=== PATIENT | female | born 1965 | race Caucasian/White ===

== ENCOUNTER 2023-10-03 19:16 | Inpatient (IN) | payer MEDICAID, OTHER ==
[~2023-10-03] VITALS: Ht 160 cm; Wt 115.2 kg
[2023-10-03 19:20] VITALS: BP_SYST 119; PULSE 108; RESP 20; RESP 28; TEMP 97.6; O2SAT 98
[2023-10-03 21:21] LABS: BASOPHILS # (AUTO) 0.1 K/uL (0.0-0.2); BASOPHILS % (AUTO) 0.7 % (0.0-2.0); EOSINOPHILS # (AUTO) 0.1 K/uL (0.0-0.4); EOSINOPHILS % (AUTO) 1.3 % (0.0-4.0); HEMATOCRIT 40.9 % (36-48); HEMOGLOBIN 13.8 g/dL (12.0-16.0); LYMPHOCYTES # (AUTO) 2.8 K/uL (1.0-5.5); LYMPHOCYTES % (AUTO) 31.6 % (20.5-51.5); MEAN CORPUSCULAR HEMOGLOBIN 29 pg (27-31); MEAN CORPUSCULAR HGB CONC 34 % (32-36); MEAN CORPUSCULAR VOLUME 85 fL (79.0-98.0); MONOCYTES # (AUTO) 0.9 K/uL (0.0-1.0); MONOCYTES % (AUTO) 10.6 % (1.7-9.3); NEUTROPHILS # (AUTO) 4.9 K/uL (1.8-7.7); NEUTROPHILS % (AUTO) 55.8 % (40.0-70.0); PLATELET COUNT (AUTO) 276 K/uL (130-430); RED BLOOD CELL COUNT(AUTO) 4.79 MIL/uL (4.2-6.2); RED CELL DISTRIBUTION WIDTH 16.8 % (9.0-15.0); WHITE BLOOD COUNT (AUTO) 8.8 K/uL (4.8-10.8)
[2023-10-03 22:01] LABS: ANION GAP 12 (5-15); CARBON DIOXIDE 28 mmol/L (23-29); CHLORIDE 100 mmol/L (98-107); CREATININE 1.15 mg/dL (0.55-1.30); GFR AFRICAN AMERICAN 63 mL/min (>90); GLUCOSE 124 mg/dL (74-106); POTASSIUM 3.3 mmol/L (3.5-5.1); SODIUM SERUM 140 mmol/L (136-145); UREA NITROGEN, BLOOD 12 mg/dL (8-21)
[2023-10-03 22:09] LABS: ALANINE AMINOTRANSFERASE 16 U/L (12-78); ALBUMIN 3.6 g/dL (3.4-4.8); ASPARTATE AMINOTRANSFERASE 10 U/L (10-37); TOTAL BILIRUBIN 0.3 mg/dL (0.0-1.0); TOTAL PROTEIN, SERUM 7.4 g/dL (6.4-8.3)
[2023-10-03 22:15] LABS: GFR NON AFRICAN-AMERICAN 52 mL/min (>90)
[2023-10-03 23:19] LABS: BILIRUBIN,URINE NEGATIVE (NEGATIVE); BLOOD, URINE NEGATIVE (NEGATIVE); COLOR,URINE YELLOW (YELLOW); GLUCOSE,URINE 3+ (NEGATIVE); KETONES,URINE TRACE (NEGATIVE); LEUKOCYTE ESTERASE ,URINE TRACE (NEGATIVE); NITRITE, URINE NEGATIVE (NEGATIVE); PROTEIN URINE NEGATIVE (NEGATIVE); UROBILINOGEN,URINE 0.2 (0.2-1.0)
[2023-10-03] MEDS ORDERED: methylPREDNISolone SOD SUCC/PF 62.5 MG/ML VIAL IVP ONE (23:30)
[2023-10-03] MEDS ORDERED: NACL 0.9% 1,000 ML IV ONE (23:30)
[2023-10-03] MEDS ORDERED: IPRATROPIUM/ALBUTEROL SULFATE 3 ML AMPUL.NEB (DUONEB) INH ONE (23:30)
[2023-10-03] MEDS ORDERED: MAGNESIUM SULFATE 50 ML IV ONE (23:30)
[2023-10-03 23:57] LABS: BLOOD GAS PCO2 27.2 mmHg (35.0-45.0); BLOOD GAS PH 7.503 (7.350-7.450)
[2023-10-03 23:58] LABS: ABG O2 SAT% ESTIMATE 97.6 % (94.0-100.0); ALLEN'S TEST YES (P); BLOOD GAS BASE EXCESS -0.4 mmol/L (-3.0-3.0); BLOOD GAS HCO3 21.3 mmol/L (21.0-27.0)
[2023-10-04] VITALS (9 sets, daily range): BP systolic 113–120; PULSE 101–118; RESP 18–22; TEMP 96.1–97.9; O2SAT 95–100
[2023-10-04 00:10] LABS: CLARITY/URINE SLIGHTLY CLOUDY (CLEAR)
[2023-10-04 00:12] LABS: BACTERIA,URINE FEW /HPF (None Seen); RBC,URINE 0-3 /HPF (0-3); WBC,URINE 20-50 /HPF (0-3)
[2023-10-04] MEDS ORDERED: PARO40TA80 PO (00:43)
[2023-10-04] MEDS ORDERED: HCT25 PO (00:43)
[2023-10-04] MEDS ORDERED: GABA-534 PO (00:43)
[2023-10-04] MEDS ORDERED: LISI20TA30 PO (00:43)
[2023-10-04] MEDS ORDERED: DAPA10TA PO (00:43)
[2023-10-04] MEDS ORDERED: OMEP20CA15 PO (00:43)
[2023-10-04] MEDS ORDERED: OMEG10006 PO (00:43)
[2023-10-04] MEDS ORDERED: DIVA-74 PO (00:43)
[2023-10-04] MEDS ORDERED: MELO-89 PO (00:43)
[2023-10-04] MEDS ORDERED: ASPI-1393 PO (00:43)
[2023-10-04] MEDS ORDERED: ASCO500T20 PO (00:43)
[2023-10-04] MEDS ORDERED: HYDR-3927 PO (00:43)
[2023-10-04] MEDS ORDERED: ALOG25TA PO (00:43)
[2023-10-04] MEDS ORDERED: CHOL500013 PO (00:43)
[2023-10-04] MEDS ORDERED: SIMV-43 PO (00:43)
[2023-10-04] MEDS ORDERED: TRAZ-251 PO (00:43)
[2023-10-04] MEDS ORDERED: VITA400T9 PO (00:43)
[2023-10-04] MEDS ORDERED: ZINC100T2 PO (00:43)
[2023-10-04] MEDS: methylPREDNISolone SOD SUCC/PF 62.5 MG/ML VIAL IVP SCH ×3 (06:40→17:02)
[2023-10-04] MEDS: cefTRIAXone 1 GM IVPB PREMIX 50 ML IV SCH (11:50)
[2023-10-04] MEDS: AZITHROMYCIN 500 MG in NS 250 ML IV SCH (11:51)
[2023-10-04] MEDS ORDERED: ALBUTEROL SULFATE 0.083% 2.5 MG/3 ML VIAL.NEB INH STA (12:20)
[2023-10-04] MEDS ORDERED: HYDROcodone/ACETAMIN 10-325 MG TAB PO PRN (12:30)
[2023-10-04] MEDS ORDERED: NALOXONE HCL 0.4 MG/ML AMP (NARCAN) IVP PRN (12:30)
[2023-10-04] MEDS ORDERED: ALBUTEROL SULFATE 0.083% 2.5 MG/3 ML VIAL.NEB INH ONE ×2 (12:50→16:00)
[2023-10-04] MEDS ORDERED: INSULIN REGULAR, HUMAN 10 UNITS/0.1 ML, 3 ML VIAL SUBCUT ONE (13:30)
[2023-10-04] MEDS ORDERED: PARoxetine HCL 20 MG TABLET PO ONE (13:30)
[2023-10-04] MEDS: INSULIN REGULAR, HUMAN 100 UNITS/ML, 3 ML VIAL (humuLIN R) SUBCUT PRN ×3 (13:34→21:43)
[2023-10-04] MEDS ORDERED: INSULIN REGULAR, HUMAN 10 UNITS/0.1 ML, 3 ML VIAL SUBCUT SCH (17:00)
[2023-10-04] MEDS: ALBUTEROL SULFATE 0.083% 2.5 MG/3 ML VIAL.NEB INH SCH ×2 (19:47→22:44)
[2023-10-04] MEDS ORDERED: GABAPENTIN 400 MG CAPSULE PO SCH (21:00)
[2023-10-04] MEDS ORDERED: traZODone HCL 50 MG TABLET (DESYREL) PO SCH (21:00)
[2023-10-04] MEDS: traZODone HCL 50 MG TABLET (DESYREL) PO SCH (21:36)
[2023-10-04] MEDS: GABAPENTIN 400 MG CAPSULE PO SCH (21:36)
[2023-10-05] VITALS (9 sets, daily range): BP systolic 95–120; PULSE 70–111; RESP 15–20; TEMP 96.7–98.1; O2SAT 92–96
[2023-10-05] MEDS: methylPREDNISolone SOD SUCC/PF 62.5 MG/ML VIAL IVP SCH ×4 (00:49→21:25)
[2023-10-05] MEDS: ALBUTEROL SULFATE 0.083% 2.5 MG/3 ML VIAL.NEB INH SCH (03:00)
[2023-10-05] MEDS ORDERED: IPRATROPIUM/ALBUTEROL SULFATE 3 ML AMPUL.NEB (DUONEB) INH PRN (06:00)
[2023-10-05 06:01] LABS: CALCIUM 9.7 mg/dL (8.4-11.0); POTASSIUM 3.3 mmol/L (3.5-5.1)
[2023-10-05 06:06] LABS: BASOPHILS % (AUTO) 0.1 % (0.0-2.0); HEMATOCRIT 36.6 % (36-48); HEMOGLOBIN 11.7 g/dL (12.0-16.0); LYMPHOCYTES # (AUTO) 1.2 K/uL (1.0-5.5); LYMPHOCYTES % (AUTO) 7.5 % (20.5-51.5); MEAN CORPUSCULAR HEMOGLOBIN 28 pg (27-31); MEAN CORPUSCULAR HGB CONC 32 % (32-36); MEAN CORPUSCULAR VOLUME 86 fL (79.0-98.0); MONOCYTES # (AUTO) 0.5 K/uL (0.0-1.0); MONOCYTES % (AUTO) 3.4 % (1.7-9.3); NEUTROPHILS # (AUTO) 13.9 K/uL (1.8-7.7); PLATELET COUNT (AUTO) 252 K/uL (130-430); RED BLOOD CELL COUNT(AUTO) 4.26 MIL/uL (4.2-6.2); RED CELL DISTRIBUTION WIDTH 16.9 % (9.0-15.0); WHITE BLOOD COUNT (AUTO) 15.7 K/uL (4.8-10.8)
[2023-10-05 06:14] LABS: ALBUMIN 3.3 g/dL (3.4-4.8); TOTAL BILIRUBIN 0.2 mg/dL (0.0-1.0); TOTAL PROTEIN, SERUM 6.7 g/dL (6.4-8.3)
[2023-10-05] MEDS: INSULIN REGULAR, HUMAN 100 UNITS/ML, 3 ML VIAL (humuLIN R) SUBCUT PRN ×3 (06:24→17:11)
[2023-10-05] MEDS: IPRATROPIUM/ALBUTEROL SULFATE 3 ML AMPUL.NEB (DUONEB) INH SCH ×3 (07:20→19:53)
[2023-10-05] MEDS ORDERED: ALOGLIPTIN BENZOATE 25 MG PO SCH (09:00)
[2023-10-05] MEDS ORDERED: ASCORBIC ACID 500 MG TABLET PO SCH (09:00)
[2023-10-05] MEDS ORDERED: CHOLECALCIFEROL (VITAMIN D3) 5,000 UNIT TABLET PO SCH (09:00)
[2023-10-05] MEDS ORDERED: HYDROCHLOROTHIAZIDE 25 MG TABLET (HCTZ) PO SCH (09:00)
[2023-10-05] MEDS ORDERED: NON-FORMULARY MEDICATION (Dapagliflozin Propanediol (Farxiga) 10 MG) PO SCH (09:00)
[2023-10-05] MEDS ORDERED: lisinopriL 20 MG TABLET PO SCH (09:00)
[2023-10-05] MEDS ORDERED: SIMVASTATIN 20 MG TABLET PO SCH (09:00)
[2023-10-05] MEDS ORDERED: MELOXICAM 7.5 MG TABLET PO SCH (09:00)
[2023-10-05] MEDS ORDERED: OMEPRAZOLE Non-Formulary 20 MG CAPSULE.DR PO SCH (09:00)
[2023-10-05] MEDS ORDERED: ASPIRIN 81 MG TABLET(ECOTRIN) PO SCH (09:00)
[2023-10-05] MEDS ORDERED: PARoxetine HCL 20 MG TABLET PO SCH (09:00)
[2023-10-05] MEDS ORDERED: DIVALPROEX SODIUM 500 MG TABLET( DEPAKOTE) PO SCH (09:00)
[2023-10-05] MEDS: VITAMIN E 400 UNIT CAPSULE PO SCH (10:10)
[2023-10-05] MEDS: OMEGA-3/DHA/EPA/FISH OIL 1 GM CAPSULE PO SCH (10:10)
[2023-10-05] MEDS: HYDROCHLOROTHIAZIDE 25 MG TABLET (HCTZ) PO SCH (10:10)
[2023-10-05] MEDS: PARoxetine HCL 20 MG TABLET PO SCH (10:10)
[2023-10-05] MEDS: CHOLECALCIFEROL (VITAMIN D3) 5,000 UNIT TABLET PO SCH (10:10)
[2023-10-05] MEDS: MELOXICAM 7.5 MG TABLET PO SCH (10:10)
[2023-10-05] MEDS: ASCORBIC ACID 500 MG TABLET PO SCH (10:11)
[2023-10-05] MEDS: DIVALPROEX SODIUM 250 MG TABLET(DEPAKOTE) PO SCH (10:11)
[2023-10-05] MEDS: SIMVASTATIN 10 MG TABLET PO SCH (10:11)
[2023-10-05] MEDS: ASPIRIN 81 MG TAB.CHEW PO SCH (10:11)
[2023-10-05] MEDS: GABAPENTIN 400 MG CAPSULE PO SCH ×2 (10:11→21:24)
[2023-10-05] MEDS: lisinopriL 20 MG TABLET PO SCH (10:12)
[2023-10-05] MEDS: PANTOPRAZOLE SODIUM 40 MG TAB PO SCH (10:14)
[2023-10-05] MEDS: APIXABAN 2.5 MG TABLET PO SCH ×2 (10:14→21:24)
[2023-10-05] MEDS: EMPAGLIFLOZIN 10 MG TABLET PO SCH (10:26)
[2023-10-05] MEDS: cefTRIAXone 1 GM IVPB PREMIX 50 ML IV SCH (10:26)
[2023-10-05] MEDS ORDERED: POTASSIUM CHLORIDE 20 MEQ TABLET.ER PO ONE (11:45)
[2023-10-05] MEDS: AZITHROMYCIN 500 MG in NS 250 ML IV SCH (12:22)
[2023-10-05] MEDS: traZODone HCL 50 MG TABLET (DESYREL) PO SCH (21:23)
[2023-10-06] VITALS (10 sets, daily range): BP systolic 113–119; PULSE 81–106; RESP 16–18; TEMP 97.2–98.6; O2SAT 91–100
[2023-10-06] MEDS: IPRATROPIUM/ALBUTEROL SULFATE 3 ML AMPUL.NEB (DUONEB) INH SCH ×4 (01:00→20:25)
[2023-10-06] MEDS: methylPREDNISolone SOD SUCC/PF 62.5 MG/ML VIAL IVP SCH ×3 (06:33→22:33)
[2023-10-06 07:13] LABS: BASOPHILS # (AUTO) 0.1 K/uL (0.0-0.2); BASOPHILS % (AUTO) 0.5 % (0.0-2.0); HEMATOCRIT 36.1 % (36-48); HEMOGLOBIN 11.8 g/dL (12.0-16.0); LYMPHOCYTES # (AUTO) 1.1 K/uL (1.0-5.5); LYMPHOCYTES % (AUTO) 7.6 % (20.5-51.5); MEAN CORPUSCULAR HEMOGLOBIN 28 pg (27-31); MEAN CORPUSCULAR HGB CONC 33 % (32-36); MEAN CORPUSCULAR VOLUME 86 fL (79.0-98.0); MONOCYTES # (AUTO) 0.5 K/uL (0.0-1.0); MONOCYTES % (AUTO) 3.4 % (1.7-9.3); NEUTROPHILS # (AUTO) 12.8 K/uL (1.8-7.7); NEUTROPHILS % (AUTO) 88.5 % (40.0-70.0); PLATELET COUNT (AUTO) 265 K/uL (130-430); RED BLOOD CELL COUNT(AUTO) 4.18 MIL/uL (4.2-6.2); RED CELL DISTRIBUTION WIDTH 16.9 % (9.0-15.0); WHITE BLOOD COUNT (AUTO) 14.5 K/uL (4.8-10.8)
[2023-10-06 07:21] LABS: CALCIUM 9.7 mg/dL (8.4-11.0); CREATININE 0.88 mg/dL (0.55-1.30)
[2023-10-06] MEDS: cefTRIAXone 1 GM IVPB PREMIX 50 ML IV SCH (09:09)
[2023-10-06] MEDS: ASPIRIN 81 MG TAB.CHEW PO SCH (09:56)
[2023-10-06] MEDS: DIVALPROEX SODIUM 250 MG TABLET(DEPAKOTE) PO SCH (09:56)
[2023-10-06] MEDS: APIXABAN 2.5 MG TABLET PO SCH ×2 (09:57→21:12)
[2023-10-06] MEDS: OMEGA-3/DHA/EPA/FISH OIL 1 GM CAPSULE PO SCH (09:57)
[2023-10-06] MEDS: MELOXICAM 7.5 MG TABLET PO SCH (09:58)
[2023-10-06] MEDS: GABAPENTIN 400 MG CAPSULE PO SCH ×2 (09:58→21:07)
[2023-10-06] MEDS: PANTOPRAZOLE SODIUM 40 MG TAB PO SCH (09:58)
[2023-10-06] MEDS: HYDROCHLOROTHIAZIDE 25 MG TABLET (HCTZ) PO SCH (09:58)
[2023-10-06] MEDS: CHOLECALCIFEROL (VITAMIN D3) 5,000 UNIT TABLET PO SCH (09:59)
[2023-10-06] MEDS: lisinopriL 20 MG TABLET PO SCH (09:59)
[2023-10-06] MEDS: ASCORBIC ACID 500 MG TABLET PO SCH (09:59)
[2023-10-06] MEDS: PARoxetine HCL 20 MG TABLET PO SCH (09:59)
[2023-10-06] MEDS: VITAMIN E 400 UNIT CAPSULE PO SCH (09:59)
[2023-10-06] MEDS: SIMVASTATIN 10 MG TABLET PO SCH (10:07)
[2023-10-06] MEDS: EMPAGLIFLOZIN 10 MG TABLET PO SCH (10:07)
[2023-10-06] MEDS: AZITHROMYCIN 500 MG in NS 250 ML IV SCH (10:09)
[2023-10-06] MEDS: INSULIN REGULAR, HUMAN 100 UNITS/ML, 3 ML VIAL (humuLIN R) SUBCUT PRN ×3 (12:30→21:12)
[2023-10-06] MEDS: traZODone HCL 50 MG TABLET (DESYREL) PO SCH (21:07)
[2023-10-07] VITALS (7 sets, daily range): BP systolic 102–114; PULSE 65–92; RESP 17–19; TEMP 97.3–98.5; O2SAT 93–97
[2023-10-07] MEDS: IPRATROPIUM/ALBUTEROL SULFATE 3 ML AMPUL.NEB (DUONEB) INH SCH ×3 (01:00→13:36)
[2023-10-07] MEDS: methylPREDNISolone SOD SUCC/PF 62.5 MG/ML VIAL IVP SCH ×2 (06:13→14:00)
[2023-10-07] MEDS: INSULIN REGULAR, HUMAN 100 UNITS/ML, 3 ML VIAL (humuLIN R) SUBCUT PRN ×3 (07:13→16:49)
[2023-10-07] MEDS: GABAPENTIN 400 MG CAPSULE PO SCH (08:59)
[2023-10-07] MEDS: ASPIRIN 81 MG TAB.CHEW PO SCH (08:59)
[2023-10-07] MEDS: EMPAGLIFLOZIN 10 MG TABLET PO SCH (08:59)
[2023-10-07] MEDS: VITAMIN E 400 UNIT CAPSULE PO SCH (09:00)
[2023-10-07] MEDS: PARoxetine HCL 20 MG TABLET PO SCH (09:00)
[2023-10-07] MEDS: HYDROCHLOROTHIAZIDE 25 MG TABLET (HCTZ) PO SCH (09:00)
[2023-10-07] MEDS: OMEGA-3/DHA/EPA/FISH OIL 1 GM CAPSULE PO SCH (09:01)
[2023-10-07] MEDS: CHOLECALCIFEROL (VITAMIN D3) 5,000 UNIT TABLET PO SCH (09:01)
[2023-10-07] MEDS: PANTOPRAZOLE SODIUM 40 MG TAB PO SCH (09:01)
[2023-10-07] MEDS: SIMVASTATIN 10 MG TABLET PO SCH (09:01)
[2023-10-07] MEDS: ASCORBIC ACID 500 MG TABLET PO SCH (09:01)
[2023-10-07] MEDS: MELOXICAM 7.5 MG TABLET PO SCH (09:02)
[2023-10-07] MEDS: DIVALPROEX SODIUM 250 MG TABLET(DEPAKOTE) PO SCH (09:02)
[2023-10-07] MEDS: APIXABAN 2.5 MG TABLET PO SCH (09:04)
[2023-10-07] MEDS: lisinopriL 20 MG TABLET PO SCH (09:17)
[2023-10-07] MEDS: cefTRIAXone 1 GM IVPB PREMIX 50 ML IV SCH (09:22)
[2023-10-07] MEDS: AZITHROMYCIN 500 MG in NS 250 ML IV SCH (09:22)
[2023-10-07] MEDS ORDERED: predniSONE 20 MG TABLET PO ONE (14:45)
[2023-10-07] MEDS ORDERED: OXYCODONE/ACETAMINOPHEN *10*mg/325 mg TABLET PO ONE (16:30)
[2023-10-07] MEDS ORDERED: HYDROcodone/ACETAMIN 10-325 MG TAB PO SCH (16:45)
[2023-10-07] MEDS ORDERED: HYDROcodone/ACETAMIN 5-325 MG TAB (NORCO/ VICODIN) PO PRN (17:00)
== END 2023-10-07 18:55 | disposition home or self-care (01) | DRG 139 ==
LOC: SED 19:16 → STU 10-04 03:43 → SMU 10-06 17:01 → OBSVTOIN 10-07 05:16
PROVIDERS: ADMIT Internal Medicine; ATTEND Internal Medicine
DX: J18.9 Pneumonia, unspecified organism (principal); J96.01 Acute respiratory failure with hypoxia; I48.91 Unspecified atrial fibrillation; J44.1 Chronic obstructive pulmonary disease with (acute) exacerbation; N39.0 Urinary tract infection, site not specified; G89.4 Chronic pain syndrome; E66.01 Morbid (severe) obesity due to excess calories; E11.9 Type 2 diabetes mellitus without complications; J44.0 Chronic obstructive pulmonary disease with (acute) lower respiratory infection; I10 Essential (primary) hypertension; F32.A Depression, unspecified; Z90.49 Acquired absence of other specified parts of digestive tract; Z79.82 Long term (current) use of aspirin; Z79.891 Long term (current) use of opiate analgesic; Z79.899 Other long term (current) drug therapy; Z68.42 Body mass index [BMI] 45.0-49.9, adult
CPT/HCPCS: 36415; 36600; 71045; 80048; 80053; 81000; 81001; 81015; 82803; 82962; 83037; 83605; 83880; 84484; 85025; 87040; 87086; 93005; 93306; 94640; 94760; 96365; 96366; 96375; 99285; G0378; J0456; J0696; J2930; J3475; J7050; J7512